=== PATIENT | female | born 1960 | race Caucasian/White ===

== ENCOUNTER → 2017-06-01 | Outpatient (CLI) | payer BC ==
[~2017-06-01] MED LIST: ALBU90OI; ALBU90OI INH; ALBU90OI6 INH; ASCO500 PO; ASPI325 PO; ASPI81CH PO; AZIT250 PO; BECL40OI INH; CLIN300 PO; DILT120 PO; ERGO400 PO; FERR160 PO; FERROUS SULFATE; FURO20; Ferrous Glucon325 M2 PO; HYDACE5 PO; LEVOTHYROXINE PO; LEVSOD125; LEVSOD175 PO; LOSA25 PO; LOSHYD100 PO; OLME40 PO; OXYACE5T PO; OXYC5 PO; PRED20 PO; RXHYDACE PO; TRIAOI; TRIAOI IH; ULTRA-LIGHT RO1 EACH MC; VALS80; Vitamin D2000 UNIT PO
== END | disposition home or self-care (01) ==
LOC: PLD 11:31 → LAB SHORT 11:31
DX: D22.5 Melanocytic nevi of trunk (principal); L82.1 Other seborrheic keratosis
CPT/HCPCS: 88305

== ENCOUNTER 2022-03-20 07:55 | Day surgery (SDC) | payer BC ==
[~2022-03-20] VITALS: Ht 167.6 cm; Wt 152.0 kg
[2022-03-20] MEDS ORDERED: METF500 (08:46)
== END 2022-03-20 11:03 | disposition home or self-care (01) ==
LOC: ORSCSDS 07:55 → ORD 09:30 → ORSCSDS 09:30 → ORSCMMR 09:30 → ORSCSDS 11:03
PROVIDERS: Internal Medicine Gastroenterology
PROC: 0DBN8ZX Excision of Sigmoid Colon, Via Natural or Artificial Opening Endoscopic, Diagnostic (ICD-10-PCS; principal; 2022-03-20 09:30)
PROC: 0DBH8ZX Excision of Cecum, Via Natural or Artificial Opening Endoscopic, Diagnostic (ICD-10-PCS; principal; 2022-03-20 09:30)
PROC: 0DBK8ZX Excision of Ascending Colon, Via Natural or Artificial Opening Endoscopic, Diagnostic (ICD-10-PCS; principal; 2022-03-20 09:30)
PROC: 0DBL8ZX Excision of Transverse Colon, Via Natural or Artificial Opening Endoscopic, Diagnostic (ICD-10-PCS; principal; 2022-03-20 09:30)
PROC: 0DBM8ZX Excision of Descending Colon, Via Natural or Artificial Opening Endoscopic, Diagnostic (ICD-10-PCS; principal; 2022-03-20 09:30)
DX: Z12.11 Encounter for screening for malignant neoplasm of colon (principal); D12.2 Benign neoplasm of ascending colon; D12.0 Benign neoplasm of cecum; D12.3 Benign neoplasm of transverse colon; D12.5 Benign neoplasm of sigmoid colon; D12.4 Benign neoplasm of descending colon; G47.33 Obstructive sleep apnea (adult) (pediatric); J45.909 Unspecified asthma, uncomplicated; K21.9 Gastro-esophageal reflux disease without esophagitis; E11.9 Type 2 diabetes mellitus without complications; E66.01 Morbid (severe) obesity due to excess calories; Z68.43 Body mass index [BMI] 50.0-59.9, adult; Z79.84 Long term (current) use of oral hypoglycemic drugs; Z79.899 Other long term (current) drug therapy
CPT/HCPCS: 82947; 88305; J2704; J7120

== ENCOUNTER 2023-03-22 21:34 | Emergency (ER) | payer OTHER ==
[~2023-03-22] VITALS: Ht 167.6 cm; Wt 140.6 kg
[~2023-03-22 21:34] MED LIST changes: +METF500
[2023-03-22 21:39] VITALS: BP 172/109
[2023-03-22] MEDS ORDERED: ROSUVASTATIN CAL5 MG PO (21:56)
[2023-03-22] MEDS ORDERED: LOSA50 PO (21:57)
[2023-03-22] MEDS ORDERED: HYDCHL25 PO (21:58)
== END 2023-03-22 22:20 | disposition home or self-care (01) ==
LOC: ER 21:34
DX: S20.212A Contusion of left front wall of thorax, initial encounter (principal); S20.211A Contusion of right front wall of thorax, initial encounter; S46.912A Strain of unspecified muscle, fascia and tendon at shoulder and upper arm level, left arm, initial encounter; S66.912A Strain of unspecified muscle, fascia and tendon at wrist and hand level, left hand, initial encounter; I10 Essential (primary) hypertension; J45.909 Unspecified asthma, uncomplicated; E03.9 Hypothyroidism, unspecified; Z79.84 Long term (current) use of oral hypoglycemic drugs; Z79.899 Other long term (current) drug therapy; Z88.0 Allergy status to penicillin; Z88.2 Allergy status to sulfonamides; Z88.6 Allergy status to analgesic agent; Z88.8 Allergy status to other drugs, medicaments and biological substances; V47.5XXA Car driver injured in collision with fixed or stationary object in traffic accident, initial encounter; Y92.410 Unspecified street and highway as the place of occurrence of the external cause
CPT/HCPCS: 99283